=== PATIENT | male | born 1960 | race Caucasian/White ===

== ENCOUNTER → 2019-05-23 | Outpatient (CLI) | payer BC ==
--- NOTE | 2019-05-23 22:02 | CONS ---
CONSULTATION DATE OF SERVICE: 05/23/2019 This patient is a 58-year-old gentleman who has been evaluated in the sleep center for possible obstructive sleep apnea-hypopnea syndrome. HISTORY OF PRESENT ILLNESS/SLEEP-WAKE EVALUATION: Patient's usual sleep schedule is from 8:30 p.m. until 5:30 a.m. on working days and from 9:30 p.m. until around 7 a.m. on weekends. Sometimes he has problems with falling asleep, has TV set in bedroom. He usually sleeps on the side position. According to his , he has loud snoring and witnessed episodes of stopped breathing during sleep. The patient wakes up from sleep up to 4 times, with up to 2 episodes of nocturia, episodes of panic attacks. In the morning the patient wakes up tired, has difficulties paying attention, falling asleep during the day. Gaston Sleepiness Scale is 10. The patient has problems with memory, concentration, irritability, depression and anxiety. No history of hypnagogic hallucinations or sleep paralysis. He may take 1 or 2 naps a day in the afternoon around 3:30 p.m. PAST MEDICAL HISTORY: Positive for hypertension, anxiety, depression, sinus problems. PAST SURGICAL HISTORY: Tonsillectomy, surgery on the sinuses. MEDICATIONS: Losartan, aripiprazole. SOCIAL HISTORY: Positive for short smoking; quit 40 years ago. Alcohol consumption occasional. FAMILY HISTORY: Heart problems, stroke, cancer. REVIEW OF SYSTEMS: Awakenings from sleep, sleepiness during the day. PHYSICAL EXAMINATION: GENERAL: A pleasant gentleman without distress. VITAL SIGNS: BP 154/75, HR 94, RR 14, height 6 feet 2-1/2 inches, weight 236.8 pounds, body mass index 29.8, temperature 98.1, oxygen saturation at room air 97%. HEENT: PERRLA, EOMI. Evaluation of oropharynx showed tongue protrudes midline. Extremely low position of soft palate. Mallampati IV. Restriction of nasal breathing. NECK: Supple. No JVD. Thyroid is not palpable. Wide neck; 18 inches in circumference. LUNGS: Clear to percussion and to auscultation. Good air exchange. No wheezing or rhonchi. HEART: S1, S2 regular. No murmurs, gallops or rubs. ABDOMEN: Obese. EXTREMITIES: No clubbing or cyanosis. 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 Cranial nerves 2 to 7 intact. There is no fasciculation or atrophy. noted. No focal deficits observed. IMPRESSION: 1. Loud snoring, witnessed episodes of stopped breathing during sleep, extremely low position of soft palate, Mallampati IV, wide neck, overweight, close to obesity, restriction of nasal breathing, ; obstructive sleep apnea-hypopnea syndrome. 2. Restriction of nasal breathing, status post sinus surgery, sinus problems. 3. Hypertension. 4. History of anxiety and depression. 5. Status post tonsillectomy. 6. Overweight; borderline obesity with body mass index of 29.8. PLAN: 1. Polysomnography for evaluation of patient's breathing during sleep. 2. CPAP/BiPAP titration if sleep study confirms obstructive sleep apnea-hypopnea syndrome. 3. Preferable position during sleep on the side. 4. No driving if patient feels any sleepiness. 5. I will see patient for follow up visit to explain results of testing and following plan. Thank you very much for referring this patient for consultation. Sincerely, Nikolas Monterroso MD, PhD, FAASM Diplomat of [employer] Supervisor [employer] [facility] [place] MMODL / IJN: [id number] /
== END | disposition home or self-care (01) ==
LOC: SLEEP 14:58
PROVIDERS: ATTEND Internal Medicine
DX: G47.33 Obstructive sleep apnea (adult) (pediatric) (principal); E66.8 Other obesity; Z98.890 Other specified postprocedural states; I10 Essential (primary) hypertension; Z86.59 Personal history of other mental and behavioral disorders; Z90.89 Acquired absence of other organs; Z87.891 Personal history of nicotine dependence; Z68.29 Body mass index [BMI] 29.0-29.9, adult
CPT/HCPCS: 99211

== ENCOUNTER → 2020-12-14 | Outpatient (CLI) | payer BC ==
--- NOTE | 2020-12-14 09:02 | XR ---
EXAMINATION TYPE: XR lumbar spine 2 or 3V DATE OF EXAM: 12/14/2020 CLINICAL HISTORY: pain TECHNIQUE: Three views of the lumbar spine are submitted. COMPARISON: None. FINDINGS: There are 5 lumbar type vertebral bodies identified. The lumbar spine shows satisfactory alignment w ithout evidence of acute fracture or dislocation. Vertebral body heights are within normal limits. Severe degenerative change L5-S1. Ventral spondylosis. The overlying soft tissue appears unremarkabl e. IMPRESSION: No acute fracture or dislocation is seen in the lumbar spine. ICD 10 NO FRACTURE, INITIAL EVALUATION
--- NOTE | 2020-12-14 09:03 | XR ---
EXAMINATION TYPE: XR Hip Bilateral Complete DATE OF EXAM: 12/14/2020 CLINICAL HISTORY: pain TECHNIQUE: 2 views of bilateral hips are submitted. COMPARISON: None. FINDINGS: There is no acute fracture/dislocation evident. The joint space appears within normal li mits. The overlying soft tissue appears unremarkable. IMPRESSION: 1. There is no acute fracture or dislocation. ICD 10 NO FRACTURE, INITIAL EVALUATION
== END | disposition home or self-care (01) ==
LOC: RADXRMAIN 08:40
PROVIDERS: ATTEND Physician Assistant
DX: M16.0 Bilateral primary osteoarthritis of hip (principal)
CPT/HCPCS: 72100; 73521

== ENCOUNTER 2021-11-25 07:29 | Day surgery (SDC) | payer BC ==
[~2021-11-25 07:29] MED LIST: LACTATED RINGERS 1,000 ML IV SCH
[2021-11-25] MEDS ORDERED: LACTATED RINGERS 1,000 ML IV ONE (08:10)
[2021-11-25 08:19] VITALS: RESP 18; TEMP 97.4
[2021-11-25] MEDS ORDERED: LIDOCAINE 2% INJ 20 MG/ML (2 ML VIAL) ONE (08:45)
[2021-11-25] MEDS ORDERED: PROPOFOL 10 MG/ML 20 ML VIAL IV ONE (08:45)
--- NOTE | 2021-11-25 08:56 | P.GSHP ---
History of Present Illness H&P Date: 11/25/21 Chief Complaint: Screening colonoscopy, history of diverticulosis This is a 61-year-old male presents today for colonoscopy patient with history of diverticulosis. Past Medical History Past Medical History: Hypertension Additional Past Medical History / Comment(s): PT STATES HE CURRENTLY HAS A COLD- INSTRUCTED TO CALL DR MANN OFFICE. History of Any Multi-Drug Resistant Organisms: None Reported Additional Past Surgical History / Comment(s): COLONOSCOPIES Past Anesthesia/Blood Transfusion Reactions: No Reported Reaction Smoking Status: Never smoker - Past Family History Father Family Medical History: Cancer Additional Family Medical History / Comment(s): CA OF URETER Medications and Allergies Home Medications Medication Instructions Recorded Confirmed Type Losartan Potassium [Cozaar] 100 mg PO HS 11/24/21 11/24/21 History Mirtazapine [Remeron] 30 mg PO HS 11/24/21 11/24/21 History Tamsulosin HCl [Flomax] 0.4 mg PO HS 11/24/21 11/24/21 History lamoTRIgine [LaMICtal] 100 mg PO HS 11/24/21 11/24/21 History Allergies Allergy/AdvReac Type Severity Reaction Status Date / Time No Known Allergies Allergy Verified 11/25/21 08:21 Surgical - Exam Vital Signs Temp Pulse Resp BP Pulse Ox 97.4 F L 89 18 157/77 95 11/25/21 08:17 11/25/21 08:17 11/25/21 08:17 11/25/21 08:17 11/25/21 08:17 - General well developed, well nourished, no distress - Eyes PERRL - ENT normal pinna - Neck no masses - Respiratory normal expansion, normal respiratory effort - Cardiovascular Rhythm: regular - Abdomen Abdomen: soft, non tender Assessment and Plan Assessment: We'll perform screening colonoscopy
--- NOTE | 2021-11-25 09:11 | P.OP ---
Date of Procedure: 11/25/21 Preoperative Diagnosis: Screening colonoscopy Diverticulosis Postoperative Diagnosis: Diverticulosis Procedure(s) Performed: Colonoscopy Anesthesia: MAC Surgeon: Darrian Bradley Pathology: none sent Condition: stable Disposition: PACU Description of Procedure: The patient's placed on the endoscopy table in the lateral position. He received IV sedation. Digital rectal exam was performed. This revealed no abnormalities. The prostate was symmetrical without nodules. The flexible colonoscope was then placed patient anus and passed throughout the entire colon. Ileocecal valve was visualized. The cecum, ascending and transverse colon appeared normal. The descending colon there was scattered diverticula seen scope was brought back into the sigmoid colon and more extensive diverticular disease was seen. The scope was brought back the rectum and this appeared normal. Scope withdrawn for patient.
[2021-11-25 09:43] VITALS: BP 111/58; PULSE 61
== END 2021-11-25 09:46 | disposition home or self-care (01) ==
LOC: ORWHC2ENDO 07:29
PROVIDERS: ATTEND Surgery
DX: Z12.11 Encounter for screening for malignant neoplasm of colon (principal); K57.30 Diverticulosis of large intestine without perforation or abscess without bleeding; I10 Essential (primary) hypertension; F41.9 Anxiety disorder, unspecified; F32.A Depression, unspecified; Z80.59 Family history of malignant neoplasm of other urinary tract organ; Z79.899 Other long term (current) drug therapy
CPT/HCPCS: 45378; J2704; J2001